=== PATIENT | male | born 1980 | race Caucasian/White ===

== ENCOUNTER 2021-05-27 08:28 | Emergency (ER) | payer OTHER, SELFPAY ==
[2021-05-27 08:30] VITALS: BP 125/84; PULSE 97; RESP 18; TEMP 36.7; O2SAT 100
[2021-05-27] MEDS: methylPREDNISolone SOD SUCC 125 MG VIAL IV PUSH (09:08)
[2021-05-27] MEDS: FAMOTIDINE 20 MG/2 ML VIAL IV PUSH (09:09)
[2021-05-27] MEDS: EPINEPHrine HCL INJ 1 MG/ML AMPUL 0.3 MG IM (09:10)
[2021-05-27 09:12] VITALS: BP 111/76; PULSE 78; RESP 22; O2SAT 99
--- NOTE | 2021-05-27 09:27 | ED.ALLEREA ---
HPI - Allergic Reaction General Chief complaint: Allergic Reaction Stated complaint: allergic reaction Time Seen by Provider: 05/27/21 08:33 Source: patient and RN notes reviewed Mode of arrival: ambulatory Limitations: no limitations History of Present Illness HPI narrative: This is a 41 year old male who presents for evaluation of an allergic reaction. He states yesterday he develop hives, itching and upper lip swelling. He has been taking Benadryl and his symptoms initially resolved. He states his hives returned and he developed lower lip swelling this morning. He took Benadryl 50 mg 1 hour ago. He denies wheezing, chest pain, tongue or throat swelling. He still has some hives and lower lip swelling. He is unsure of new exposures. He works outside in construction. He denies history of an allergic reaction in the past. He denies taking any medications daily. No ACEI Related Data Allergies Allergy/AdvReac Type Severity Reaction Status Date / Time No Known Allergies Allergy Verified 05/27/21 14:42 Review of Systems Review of Systems: All systems reviewed & are unremarkable except as noted in HPI and below PMFSH Past Medical History Medical History (Updated 05/27/21 @ 16:05 by Dilia Dunlap PA-C) Patient denies medical problems Surgical History Surgical History (Updated 05/27/21 @ 09:31 by Leonarda Teresa MD) No pertinent past surgical history Social History Social History (Updated 05/27/21 @ 09:31 by Leonarda Teresa MD) Smoking status: Never smoker Alcohol intake: never Substance use: never Gender identity (if verbalized by the patient): Male Exam Const: General: no acute distress and alert HENMT: Mouth: Yes Normal oral and palatal mucosa present Throat: uvula midline Other: mild lower lip swelling Eyes: EOM: EOMs intact bilaterally Resp: Effort & Inspection: normal respiratory effort and no retractions Auscultation: clear to auscultation bilaterally Cardio: Rate: regular rate Rhythm: regular rhythm Heart sounds: no murmurs Skin: Other: a few scattered blanching hives to leg and back Neuro: General: patient oriented x3, moves all extremities and CN's II-XI intact bilaterally Course Reevaluation(s) Reevaluation #1: Nursing staff reports flushing with dose of solu medrol. Date: 05/27/21 Time: 09:32 Reevaluation #2: Patient reports he feels better. Lip swelling resolved. Date: 05/27/21 Time: 10:39 Vital Signs Vital signs: Vital Signs Temperature 98.1 F 05/27/21 08:30 Pulse Rate 97 05/27/21 08:30 Respiratory Rate 18 05/27/21 08:30 Blood Pressure 125/84 05/27/21 08:30 Pulse Oximetry 100 05/27/21 08:30 Temperature 98.1 F 05/27/21 08:30 Pulse Rate 86 05/27/21 10:50 Respiratory Rate 21 H 05/27/21 10:50 Blood Pressure 115/73 05/27/21 10:50 Pulse Oximetry 97 05/27/21 10:50 Discharge Plan Discharge Clinical Impression: Allergic reaction Qualifiers: Encounter type: initial encounter Qualified Code(s): T78.40XA - Allergy, unspecified, initial encounter Patient Disposition: Home, Self-Care Condition: Stable Instructions: General Allergic Reaction (ED) Additional Instructions: Today you were evaluated for an allergic reaction. You can take benadryl every 6 hours as needed for rash and itching. OR you can take zyretec or claritin which his nondrowsy for itching and rash. Take steroids as prescribed. Take pepcid 20 mg daily. Return to ER if you develop chest pain, difficulty breathing, tongue or throat swelling. Follow up with a primary care provider. Prescriptions: New prednisone 10 mg Tablets,Dose Pack See Taper mg PO DAILY 12 Days Qty: 42 RF: 0 famotidine [Pepcid] 20 mg tablet 20 mg PO DAILY Qty: 14 RF: 0 Follow-up/Referrals: PHYSICIAN,CLINICAL NURSING MANAGER [Primary Care Provider] - Yogesh Barriga MD [Physician] -
[2021-05-27 10:50] VITALS: BP 115/73; PULSE 86; RESP 21; O2SAT 97
== END 2021-05-27 10:51 | disposition home or self-care (01) ==
PROVIDERS: Emergency Provider General Practice
DX: T78.40XA Allergy, unspecified, initial encounter (principal)
CPT/HCPCS: 96372; 96374; 96375; 99284; J0171; J2930

== ENCOUNTER 2021-05-27 14:31 | Emergency (ER) | payer OTHER, SELFPAY ==
[2021-05-27 14:42] VITALS: BP 137/87; PULSE 120; RESP 14; TEMP 36.6; O2SAT 97
[2021-05-27 15:48] VITALS: BP 123/76; PULSE 114; RESP 22; O2SAT 97
--- NOTE | 2021-05-27 16:03 | ED.SKABFB ---
HPI - Skin/Abscess/Foreign Bdy General Chief complaint: Skin/Abscess/Foreign Body Stated complaint: rash Time Seen by Provider: 05/27/21 15:14 Source: patient Mode of arrival: ambulatory Limitations: no limitations History of Present Illness HPI narrative: This is a 41 year old male that presents to the ER for rash present since yesterday. Reports he has been having intermittent flares of hives since yesterday. He was seen in the ER here earlier and given steroid and antihistamines with improvement. His hives came back again when he got home which prompted him to be seen again. Denies swelling in his mouth or difficulty breathing. Related Data Allergies Allergy/AdvReac Type Severity Reaction Status Date / Time No Known Allergies Allergy Verified 05/27/21 14:42 Review of Systems Review of Systems: CONSTITUTIONAL: Denies fever RESPIRATORY: Denies dyspnea. SKIN: Reports rash and itching. All systems reviewed & are unremarkable except as noted in HPI and below PMFSH Past Medical History Medical History (Updated 05/27/21 @ 16:05 by Dilia Dunlap PA-C) Patient denies medical problems Surgical History Surgical History (Updated 05/27/21 @ 09:31 by Leonarda Teresa MD) No pertinent past surgical history Social History Social History (Updated 05/27/21 @ 09:31 by Leonarda Teresa MD) Smoking status: Never smoker Alcohol intake: never Substance use: never Gender identity (if verbalized by the patient): Male Exam Narrative: GENERAL: Well-appearing, well-nourished, and in no acute distress. HEAD: Normocephalic, atraumatic. EYES: EOMI. ENT: Mucous membranes moist. Oropharynx without tonsillar hypertrophy exudate or other lesions. CHEST: Clear to auscultation. No respiratory distress. No wheezes rales or rhonchi HEART: Regular rate and rhythm. No murmur heard. Normal peripheral pulses. EXTREMITIES: Normal range of motion. No edema. SKIN: Warm, dry. Scattered wheals present on the right upper arm, back and chest NEURO: No focal deficits. Alert and oriented x3. PSYCH: Normal mood and affect Course Vital Signs Vital signs: Vital Signs Temperature 97.9 F 05/27/21 14:42 Pulse Rate 120 H 05/27/21 14:42 Respiratory Rate 14 05/27/21 14:42 Blood Pressure 137/87 05/27/21 14:42 Pulse Oximetry 97 05/27/21 14:42 Temperature 97.9 F 05/27/21 14:42 Pulse Rate 109 H 05/27/21 16:17 Respiratory Rate 21 H 05/27/21 16:17 Blood Pressure 122/85 05/27/21 16:17 Pulse Oximetry 97 05/27/21 16:17 MDM - Skin/Abscess/Foreign Bdy MDM Narrative Medical decision making narrative: Patient presents the emergency department for intermittent hives present since yesterday. Was seen here earlier for this. Has been started on antihistamines and steroid taper. He had reappearance of his hives when he got home which prompted him to be seen again. By the time of my assessment his hives were nearly gone as he had taken Benadryl prior to arrival. His airway is patent. No swelling of the mouth. He was instructed to continue his antihistamines as directed and take a steroid taper. He is to follow-up with primary care doctor. He was given warnings to return to the ER Critical Care Time Critical Care Time Critical Care Time: No Discharge Plan Discharge Clinical Impression: Hives Patient Disposition: Home, Self-Care Condition: Stable Instructions: Urticaria (ED) Additional Instructions: Return to the emergency department if you experience fever, swelling of your mouth, difficulty breathing, or any other symptoms that are concerning to you Take a Pepcid and Claritin daily. Take steroid taper as prescribed. Benadryl as needed for severe itching or with rash flare Follow-up with primary care doctor Prescriptions: No Action prednisone 10 mg Tablets,Dose Pack See Taper mg PO DAILY 12 Days Qty: 42 RF: 0 famotidine [Pepcid] 20 mg tablet 20 mg PO DAILY Qty: 14 RF: 0 Fol
[2021-05-27 16:17] VITALS: BP 122/85; PULSE 109; RESP 21; O2SAT 97
== END 2021-05-27 16:18 | disposition home or self-care (01) ==
PROVIDERS: Emergency Provider Emergency Medicine
DX: L50.9 Urticaria, unspecified (principal)
CPT/HCPCS: 99281